=== PATIENT | male | born 1960 ===

== ENCOUNTER → 2023-04-06 | Outpatient (CLI) | payer OTHER ==
--- NOTE | 2023-04-06 17:20 | MR ---
EXAMINATION TYPE: MR brain wo/w con DATE OF EXAM: 04/06/2023 COMPARISON: NONE HISTORY: Current Lung CA. Malignant neoplasm right lower lobe. TECHNIQUE: Multiplanar, multisequence images of the brain and brainstem is performed without and with IV contras t, utilizing 10ml mL intravenous Gadavist . FINDINGS: Diffusion weighted images demonstrate no evidence of a recent infarct or other diffusion ab normality. There is mild to moderate ventricular and sulcal prominence. No significant white matter c hanges are seen. T2 Star-weighted images show punctate areas of round hypointensity bilaterally fairl y diffusely. Midline structures demonstrate normal morphology. The craniocervical junction appears within normal limits. Post contrast images demonstrate no abnormal enhancement. The dural venous sinuses appear pa tent. Right-sided aphakia is seen.. IMPRESSION: There is mild to moderate diffuse cerebral atrophy and evidence of bilateral diffuse axon al injury or remote trauma. There is no abnormal enhancing masses to suggest metastatic disease to th e brain.
== END | disposition home or self-care (01) ==
LOC: RADMRIMAIN 15:52
PROVIDERS: ATTEND Radiology Radiation Oncology
DX: C34.31 Malignant neoplasm of lower lobe, right bronchus or lung (principal); G31.9 Degenerative disease of nervous system, unspecified
CPT/HCPCS: 70553; A9585

== ENCOUNTER → 2023-04-20 | Outpatient (CLI) | payer OTHER ==
--- NOTE | 2023-04-22 10:14 | PE ---
EXAMINATION TYPE: PET CT fusion skull to thigh DATE OF EXAM: 04/20/2023 CLINICAL INDICATION:Male, 63 years old with history of R07.2 PRECORDIAL PAIN; TECHNIQUE: Following the intravenous administration of 8.9 mCi of F-18 FDG, whole body images are p erformed from the skull base to the midthigh. Images are reviewed on the computer in the coronal, ax ial, and sagittal planes. Reconstructed rotating images are created on independent workstation and r eviewed on the computer. A non-contrast CT is performed in conjunction with the PET scan. Glucose l evel 166 mg/dL CT DLP: 861 mGycm, Automated exposure control for dose reduction was used. COMPARISON: CT 04/30/2021, PET/CT None, FINDINGS: Mediastinal SUV mean is 2.2. Hepatic parenchyma SUV mean is 2.9. SKULL BASE AND NECK: No suspicious radiotracer activity. Uptake within the floor the mouth on the left Max SUV 5.[address] correlate. CHEST, MEDIASTINUM, AND HILAR REGION: * Right lower lung pulmonary mass measuring 62 x 54 mm next 13.2. * Right perihilar lymph nodes max SUV 8.1. Measurements are difficult without IV contrast. * Subcarinal lymph node max SUV 4.6. Measuring 8 mm in short axis. * Right low paratracheal lymph node max SUV 3.0 measuring 8 mm in short axis. ABDOMEN AND PELVIS: No suspicious radiotracer activity. MUSCULOSKELETAL STRUCTURES: No suspicious radiotracer activity. OTHER CT: Atherosclerosis of the coronary arteries. Atherosclerosis of the carotid bifurcations. Chol elithiasis. Moderate stool burden. Affecting umbilical hernia. Fat-containing inguinal hernias right greater than left. IMPRESSION: 1. Right lower lung mass compatible with malignancy with metastatic disease to the right pulmonary h ilum and mediastinal lymph nodes. 2. Indeterminate uptake within the floor the mouth on the left. No CT correlate. Attention on follow -up imaging.
== END | disposition home or self-care (01) ==
LOC: RADPETMAIN 08:43
PROVIDERS: ATTEND Internal Medicine
DX: R91.8 Other nonspecific abnormal finding of lung field (principal); R07.2 Precordial pain
CPT/HCPCS: 78815; A9552

== ENCOUNTER → 2023-07-24 | Outpatient (CLI) | payer OTHER ==
[2023-07-24 12:25] LABS: African American GFR (CKD) >90 (>60 ml/min/1.73 sqM); Blood Urea Nitrogen <2 mg/dL (9-20); Non-African American GFR(CKD) >90 (>60 ml/min/1.73 sqM)
--- NOTE | 2023-07-29 15:43 | CT ---
EXAMINATION TYPE: CT chest w con DATE OF EXAM: 07/24/2023 COMPARISON: PET/CT 04/20/2023 HISTORY: Hx lung ca CT DLP: 474.60 mGycm, Automated exposure control for dose reduction was used. CONTRAST: Performed injected with 100 mL of Isovue 300. TECHNIQUE: Axial images were obtained at 5 mm thick sections. Reconstructed images are reviewed on [employer] computer in the coronal plane. FINDINGS: Portion of the thyroid visualized is normal. There is a right lower lobe consolidation. Some air bronchograms are present. This is estimated to me asure 4.2 x 4.2 cm on mediastinal windows. Findings appear smaller compared to the comparison PET/CT 04/20/2023 and can be related to the patient's neoplasm. Some mild emphysematous changes are present. No enlarged mediastinal or hilar adenopathy is evident. The ascending aorta diameter at the level o f the main pulmonary artery is 3.9 cm. The main pulmonary artery diameter at the bifurcation is 2.[address] sections are obtained through the upper abdomen. Cholelithiasis is present. IMPRESSION: 1. Right lower lobe density can be related to the patient's lung cancer.
== END | disposition home or self-care (01) ==
LOC: RADCTMAIN 11:30
PROVIDERS: ATTEND Internal Medicine Hematology & Oncology
DX: J98.4 Other disorders of lung (principal); C34.31 Malignant neoplasm of lower lobe, right bronchus or lung; C76.0 Malignant neoplasm of head, face and neck; J44.9 Chronic obstructive pulmonary disease, unspecified; I25.10 Atherosclerotic heart disease of native coronary artery without angina pectoris
CPT/HCPCS: 82565; 84520; 71260; Q9967

== ENCOUNTER → 2023-10-22 | Outpatient (CLI) | payer MEDICARE, OTHER ==
--- NOTE | 2023-10-22 12:04 | CT ---
EXAMINATION TYPE: CT chest w con DATE OF EXAM: 10/22/2023 COMPARISON: 07/24/2023 HISTORY: f/u lung ca/ prior on pacs CT DLP: 373.90 mGycm Automated exposure control for dose reduction was used. TECHNIQUE: CT scan of the chest is performed with IV Contrast, patient injected with 100ml mL of Isovue 300. IN P Images are created on CT scanner and reviewed. 3D reconstructed images are created on an [employer] workstation and reviewed. FINDINGS: LUNGS: Right hilar mass measuring 3.9 x 5.0 cm appears slightly reduced in size compared to prior exa m. There is a subpleural 2 mm micronodule left lower lobe stable. There is a new 2 mm nodule image 35 2 small to characterize left lower lobe. Emphysematous changes with areas of subsegmental consolidation most typical of scarring or atelectasi s. No focal pneumonia. No pulmonary edema. Patchy right perihilar attenuation most typical of atelect asis. MEDIASTINUM: Stable borderline right hilar additional adenopathy measuring 1 cm in short axis. Subcen timeter mediastinal lymph nodes are stable. Subcentimeter axillary lymph nodes are stable. Within the right lower lobe on image 59 there is a stable 6 mm nodule. Subpleural 2 mm micronodule im age 55 stable. Additional left lower lobe micronodule image 54 stable. Subpleural 1 to 2 mm micronodule right upper lobe image 37 stable. Coronary artery calcifications are noted. No significant atherosclerotic change of the aorta. Trace o f pericardial fluid. Heart size normal. OTHER: Hypertrophic and degenerative changes of the spine. Findings suggestive of hepatic steatosis. Thickening of the adrenal glands stable and nonspecific. Cholelithiasis. Small hiatal hernia. IMPRESSION: 1. There is interval slight reduction in size of the right hilar mass now measuring 3.9 x 5.0 cm and previously measuring 4.7 x 5.1 cm. 2. Multiple pulmonary micronodules the majority which are stable. There is a new 2 mm left lower lobe pulmonary micronodule which be monitored on subsequent exam. 3. Stable right hilar borderline lymphadenopathy. Follow-up recommendations for incidental pulmonary nodules are per [facility] [employer] [place] [employer] or [employer] [place] [employer].
== END | disposition home or self-care (01) ==
LOC: RADCTMAIN 11:16
PROVIDERS: ATTEND Radiology Radiation Oncology
DX: C34.31 Malignant neoplasm of lower lobe, right bronchus or lung
CPT/HCPCS: 71260

== ENCOUNTER → 2024-02-01 | Outpatient (CLI) | payer MEDICARE ==
--- NOTE | 2024-02-01 14:13 | CT ---
EXAMINATION TYPE: CT chest w con CT DLP: 652 mGycm, Automated exposure control for dose reduction was used. DATE OF EXAM: 02/01/2024 1:55 PM COMPARISON: CT chest 10/22/2023, 07/24/2023, PET/CT 04/20/2023 CLINICAL INDICATION:Male, 63 years old with history of C34.31 MALIGNANT NEOPLASM OF LOWER LOBE, RIGHT BRO; PHH, hx of lung ca TECHNIQUE: Multiple axial images were obtained through the chest following the administration of 100 cc of Isovue 300. . Coronal and sagittal reformats reviewed. FINDINGS: LUNGS/ PLEURA: No pleural effusion or pneumothorax. Moderate centrilobular emphysematous changes. Sim ilar linear scarring within the superior segment of the left lower lobe and lingula. Additional tran lar linear scarring within the superior segment of the right lower lobe. Mildly decrease in size of r ight perihilar masslike lesion measuring 3.2 x 1.9 cm (series 3, image 38). Previously measured 3.5 x 3.1 cm when measured with similar technique. Stable left lower lobe 4 mm pulmonary nodule (series 4, image 47). Stable left lower lobe 4 mm pulmonary nodule (series 4, image 57). Stable right lung base 8 mm pulmonary nodule (series 4, image 63). New right midlung 4 mm pulmonary nodule (series 4, image 33). AIRWAY: Patent and unremarkable.. HEART: Size within normal limits.No pericardial effusion. Small coronary artery calcifications. MEDIASTINUM: No enlarged lymph nodes greater than 1 cm short axis identified. VASCULATURE: No aortic aneurysm. MUSCULOSKELETAL: No acute osseous abnormalities. No aggressive osseous lesion. SOFT TISSUES/LYMPH NODES: Bilateral gynecomastia with left greater than right. LOWER NECK: No significant findings. UPPER ABDOMEN: Cholelithiasis. IMPRESSION: Interval reduction in size of right hilar mass now measuring 3.2 x 1.9 cm, previously 3.5 x 3.1 cm wh en measured with similar technique. Diffuse stable pulmonary nodules with a new right midlung 4 mm pu lmonary nodule which raises possibility of metastasis. Follow-up CT chest in 3 months is recommended. [facility], , 02/01/2024 2:11 PM
== END | disposition home or self-care (01) ==
LOC: RADCTMAIN 13:16
PROVIDERS: ATTEND Radiology Radiation Oncology
DX: C34.31 Malignant neoplasm of lower lobe, right bronchus or lung (principal); C77.1 Secondary and unspecified malignant neoplasm of intrathoracic lymph nodes; R91.8 Other nonspecific abnormal finding of lung field
CPT/HCPCS: 71260; Q9967

== ENCOUNTER → 2024-05-13 | Outpatient (CLI) | payer MEDICARE, OTHER ==
[2024-05-13 11:16] LABS: African American GFR (CKD) >90 (>60 ml/min/1.73 sqM); Blood Urea Nitrogen 6 mg/dL (9-20); Non-African American GFR(CKD) >90 (>60 ml/min/1.73 sqM)
--- NOTE | 2024-05-13 12:16 | CT ---
EXAMINATION TYPE: CT chest w con DATE OF EXAM: 05/13/2024 COMPARISON: 02/01/2024 CLINICAL INDICATION: Male, 64 years old with history of C34.31 MALIGNANT NEOPLASM OF LOWER LOBE, RIGH T BRO; PHH, Malignant neoplasm lower lobe, rt bronchus, intrathoracic lymphnodes. TECHNIQUE: CT scan of the chest is performed with IV Contrast, patient injected with 100 mL of Isovue 300. MIP Images are created on CT scanner and reviewed. 3D reconstructed images are created on an independent workstation and reviewed. CT DLP: [address] CTDI: mGy Automated exposure control for dose reduction was used. FINDINGS: LUNGS: Continued reduction in size of right hilar mass currently measuring 2.6 x 1.5 cm versus 3.2 x 2.0 cm previously. Pleural thickening left upper lobe. No new nodules or masses seen. A couple tiny s cattered nodules are stable and nonspecific. Mild upper lobe emphysematous changes. There is no pleur al effusion or pneumothorax seen. The tracheobronchial tree is patent. MEDIASTINUM: There are no greater than 1 cm hilar or mediastinal lymph nodes. No pericardial effusi on is seen. OTHER: Cholelithiasis. IMPRESSION: 1. Right hilar mass is again noted and is smaller in size when compared to the prior study. No new no dules or masses seen. Follow-up recommendations for incidental pulmonary nodules are per [facility] [employer] [facility] [employer] or [employer]. [facility], , 05/13/2024 12:14 PM
== END | disposition home or self-care (01) ==
LOC: RADCTMAIN 10:29
PROVIDERS: ATTEND Radiology Radiation Oncology
DX: C34.31 Malignant neoplasm of lower lobe, right bronchus or lung (principal); C77.1 Secondary and unspecified malignant neoplasm of intrathoracic lymph nodes
CPT/HCPCS: 82565; 84520; 71260; 36415; Q9967

== ENCOUNTER → 2024-09-22 | Outpatient (CLI) | payer MEDICARE, OTHER ==
[2024-09-22 15:10] LABS: African American GFR (CKD) >90 (>60 ml/min/1.73 sqM); Blood Urea Nitrogen 3 mg/dL (9-20); Non-African American GFR(CKD) >90 (>60 ml/min/1.73 sqM)
--- NOTE | 2024-09-22 16:34 | CT ---
EXAMINATION TYPE: CT chest w con CT DLP: 382.2 mGycm, Automated exposure control for dose reduction was used. DATE OF EXAM: 09/22/2024 4:00 PM COMPARISON: Multiple CT chest with most recent 05/14/2023, PET/CT 04/20/2023 CLINICAL INDICATION:Male, 64 years old with history of C34.31 LUNG CANCER; PHH, lung cancer, Follow u p TECHNIQUE: Multiple axial images were obtained through the chest following the administration of 100 cc of Isovue 300. . Coronal and sagittal reformats reviewed. FINDINGS: LUNGS/ PLEURA: No pleural effusion or pneumothorax. Moderate centrilobular emphysematous changes. Margo ear atelectasis within the lingula. Additional similar scattered regions of linear scarring. Similar right posterior perihilar soft tissue measuring grossly 2.6 x 2.4 cm (series 3, image 38). New periph eral right upper lobe 1.2 cm irregular opacity (series 4, image 26). Few new left lower lobe solid pu lmonary nodules including a solid 1.1 cm nodule (series 4, image 54). Left lower lobe 8 mm pulmonary nodule (series 4, image 57). Left lower lobe subpleural 3.8 mm pulmonary nodule (series 4, image 56) and a left lower lobe lateral subpleural 7.9 mm pulmonary nodule (series 4, image 54). HEART: Size within normal limits.No pericardial effusion. Mild coronary artery calcifications. MEDIASTINUM: No enlarged lymph nodes greater than 1 cm short axis identified. VASCULATURE: Stable aortic root aneurysm dilatation measuring 4.1 cm. Stable ectasia of the ascendin g thoracic aorta measuring 3.9 cm. No evidence for pulmonary embolism. Dilatation of the main pulmona ry artery measuring 3.2 cm which can be seen with pulmonary arterial hypertension. MUSCULOSKELETAL: No acute osseous abnormalities. No aggressive osseous lesion. SOFT TISSUES/LYMPH NODES: Bilateral gynecomastia with left greater than right. LOWER NECK: No significant findings. UPPER ABDOMEN: No significant findings. IMPRESSION: Overall similar right perihilar soft tissue from prior exam however there are few new pulmonary nodul es/opacities from prior exam. Largest new pulmonary nodule is within the left lower lobe measured 1.1 cm with development of a right upper lobe 1.2 cm subpleural irregular opacity. Raises concern for po ssible recurrent/metastasis. Recommend further evaluation with PET/CT. [facility], , 09/22/2024 4:32 PM
== END | disposition home or self-care (01) ==
LOC: RADCTMAIN 14:12
PROVIDERS: ATTEND Radiology Radiation Oncology
DX: C34.31 Malignant neoplasm of lower lobe, right bronchus or lung (principal); R91.8 Other nonspecific abnormal finding of lung field
CPT/HCPCS: 82565; 84520; 71260; 36415; Q9967